=== PATIENT | male | born 1975 | race African-American/Black ===

== ENCOUNTER 2021-04-03 02:35 | Emergency (ER) | payer OTHER ==
[~2021-04-03] VITALS: Ht 160 cm; Wt 49.9 kg
[2021-04-03] MEDS ORDERED: CEPHALEXIN500 MG PO (03:23)
[2021-04-03 03:25] VITALS: BP 131/89
== END 2021-04-03 03:25 | disposition home or self-care (01) ==
LOC: ER 02:35
DX: S61.411A Laceration without foreign body of right hand, initial encounter (principal); W25.XXXA Contact with sharp glass, initial encounter; Y93.89 Activity, other specified; Y92.89 Other specified places as the place of occurrence of the external cause; Y99.9 Unspecified external cause status